=== PATIENT | female | born 1955 | race Caucasian/White ===

== ENCOUNTER 2016-09-11 15:26 | Emergency (ER) | payer BC ==
[~2016-09-11] VITALS: Ht 175.3 cm; Wt 71.7 kg
[2016-09-11 15:27] VITALS: BP 138/77
[2016-09-11] MEDS ORDERED: HYDROCODONE-AP1 EAC6 PO (16:13)
[2016-09-11] MEDS ORDERED: IBUPROFEN 600600 M1 PO (16:13)
== END 2016-09-11 16:28 | disposition home or self-care (01) ==
LOC: ER 15:26
DX: S76.012A Strain of muscle, fascia and tendon of left hip, initial encounter (principal); Z90.89 Acquired absence of other organs; W18.30XA Fall on same level, unspecified, initial encounter; Y93.89 Activity, other specified; Y92.89 Other specified places as the place of occurrence of the external cause; Y99.9 Unspecified external cause status

== ENCOUNTER → 2016-12-26 | Outpatient (CLI) | payer BC ==
[~2016-12-26] MED LIST: HYDROCODONE-AP1 EAC6 PO; IBUPROFEN 600600 M1 PO
== END ==
LOC: RAD 07:42
DX: Z12.31 Encounter for screening mammogram for malignant neoplasm of breast (principal)

== ENCOUNTER → 2018-02-04 | Outpatient (CLI) | payer OTHER | LOC: RAD 08:12 | DX: Z12.31 Encounter for screening mammogram for malignant neoplasm of breast (principal) ==

== ENCOUNTER → 2019-02-25 | Outpatient (CLI) | payer OTHER | LOC: RAD 03:31 | DX: Z12.31 Encounter for screening mammogram for malignant neoplasm of breast (principal) ==

== ENCOUNTER → 2020-03-17 | Outpatient (CLI) | payer OTHER | LOC: RAD 08:07 → BC 13:50 | PROVIDERS: ATTEND Pediatrics | DX: Z12.31 Encounter for screening mammogram for malignant neoplasm of breast (principal) ==

== ENCOUNTER → 2021-03-29 | Outpatient (CLI) | payer OTHER | LOC: RAD 15:15 | PROVIDERS: ATTEND Obstetrics & Gynecology | DX: Z12.31 Encounter for screening mammogram for malignant neoplasm of breast (principal); N64.89 Other specified disorders of breast ==